=== PATIENT | male | born 1990 | race Caucasian/White ===

== ENCOUNTER 2019-06-18 19:07 | Emergency (ER) | payer OTHER ==
[~2019-06-18] VITALS: Ht 177.8 cm; Wt 68.0 kg
[2019-06-18 19:24] VITALS: BP 129/79
--- NOTE | 2019-06-19 10:56 | ER.PDOC ---
General Chief Complaint: Toothache Stated Complaint: TOOTHACHE Time seen by MD: 19:10 Source: patient, family History of Present Illness Initial Comments toothache x 2 days, right lower area, fever at home, pain 7 or 8 Timing/Duration: other Associated Symptoms: toothache, facial pain Severity: moderate Past Medical History Medical History: no pertinent history Social History Alcohol Use: none Drug Use: none Constitutional: no symptoms reported, fever Eyes: no symptoms reported Ears: no symptoms reported Nose: no symptoms reported Mouth: pain Respiratory: no symptoms reported Cardiovascular: no symptoms reported Skin: no symptoms reported Physical Exam General Appearance: alert Head/Neck: (R) mandibular swelling Eyes: eyes nml inspection Mouth: dental tenderness, gum swelling Throat: pharynx nml Ears/Nose: nml inspection Respiratory: no resp. distress CVS: reg. rate & rhythm Abdomen: non-tender Extremities: non-tender Skin Exam: Normal Color NEURO/PSYCH: oriented X3 Results/Orders Results/Orders Vital Signs Date Time Temp Pulse Resp B/P (MAP) Pulse Ox O2 Delivery O2 Flow Rate FiO2 06/18/19 19:24 99.1 90 18 129/79 (96) 98 06/18/19 19:22 99.1 90 18 98 Departure Time of Disposition: 19:44 Disposition: 01 HOME, SELF-CARE Impression: Primary Impression: Toothache Condition: Stable Patient Instructions: Toothache-Brief Additional Instructions: See Dentist DULCE, Return is symptoms worsen Duration or Time Spent with Pa: 20 minutes Return to Work/School Can a patient return to work?: No Can a patient return to school: No LEVY LAKHANI NP Jun 19, 2019 10:56
== END 2019-06-18 19:44 | disposition home or self-care (01) ==
LOC: ER 19:07
DX: K08.89 Other specified disorders of teeth and supporting structures (principal); R50.9 Fever, unspecified
CPT/HCPCS: 99281